=== PATIENT | female | born 1990 | race Caucasian/White ===

== ENCOUNTER 2017-01-18 22:38 | Emergency (ER) | payer OTHER ==
[~2017-01-18] VITALS: Ht 157.5 cm; Wt 57.0 kg
[~2017-01-18 22:38] MED LIST: CIPR500T4 PO; METR500T PO
[2017-01-18 23:00] VITALS: Ht 157.5 cm; Wt 57.0 kg
[2017-01-19] MEDS ORDERED: IBUP-1542 PO (00:40)
--- NOTE | 2017-01-19 00:42 | ERD ---
ER Documentation Chief Complaint Chief Complaint Rt wrist pain x1day s/p fall. No KO. +CMS HPI 26 year female right wrist pains for 1 day. She fell. No loss conscious. Complains of pain in her right wrist. No nausea no vomiting no chills. No other current complaints. Pain is mild to moderate intensity. No numbness or tingling. ROS All systems reviewed and are negative except as per history of present illness. Medications Home Meds Active Scripts Ibuprofen* (Motrin*) 600 Mg Tab, 600 MG PO Q6, #30 TAB Prov:GERHARD EVANS 01/19/17 Metronidazole* (Flagyl*) 500 Mg Tablet, 500 MG PO TID for 7 Days, TAB Prov:DANI ACEVEDO PA-C 03/13/16 Ciprofloxacin Hcl* (Ciprofloxacin Hcl*) 500 Mg Tablet, 500 MG PO BID for 7 Days , TAB Prov:DANI ACEVEDO PA-C 03/13/16 Allergies Allergies: Coded Allergies: No Known Allergy (Unverified , 01/18/17) PMhx/Soc History of Surgery: No Anesthesia Reaction: No Hx Neurological Disorder: No Hx Respiratory Disorders: No Hx Cardiac Disorders: No Hx Psychiatric Problems: No Hx Miscellaneous Medical Probl: No Hx Alcohol Use: No Hx Substance Use: No Hx Tobacco Use: No Physical Exam Vitals Vital Signs Date Time Temp Pulse Resp B/P Pulse Ox O2 Delivery O2 Flow Rate FiO2 01/18/17 23:00 97.7 66 18 104/65 100 Physical Exam Const: [] Head: Atraumatic Eyes: Normal Conjunctiva ENT: Normal External Ears, Nose and Mouth. Neck: Full range of motion..~ No meningismus. Resp: Clear to auscultation bilaterally Cardio: Regular rate and rhythm, no murmurs Abd: Soft, non tender, non distended. Normal bowel sounds Skin: No petechiae or rashes Back: No midline or flank tenderness Ext: No cyanosis, or edema Neur: Awake and alert Psych: Normal Mood and Affect Procedures/MDM X-ray Wrist 3V Interpreted by me: Scaphoid: [Normal] Bones: Scaphoid fracture Joints: [No dislocation] Foreign body: [None] Clinical decision-m[age]-year-old female with scaphoid fracture. Placed in sugar tong splint. Follow-up with orthopedics. Return for worsening symptoms. Splint Assessment: Neurovascularly intact post splint placement with good fit. Departure Diagnosis: Primary Impression: Wrist injury Encounter type: initial encounter Laterality: right Qualified Code: S69.91XA - Injury of right wrist, initial encounter Condition: Stable Patient Instructions: Treating Wrist Fractures Referrals: NATO KIM MD, DANIEL S. Jan 19, 2017 00:42
[2017-01-19] MEDS ORDERED: ONDANSETRON (ODT) 4 MG TAB ODT STA (00:53)
[2017-01-19] MEDS ORDERED: morphine 10 MG INJ IM ONE (01:00)
--- NOTE | 2017-01-19 01:05 | RADRPT ---
PROCEDURE: XR Wrist. CLINICAL INDICATION: Pain. TECHNIQUE: 4 views of the right wrist. COMPARISON: None available. FINDINGS: There is a minimally displaced fracture through the scaphoid waist. The joint spaces are preserved. There is no significant soft tissue swelling. IMPRESSION: 1. Minimally displaced scaphoid waist fracture. RPTAT: HTAR .Sebastien Crowe MD, MD Date Time Electronically viewed and signed by .Sebastien Crowe MD, on 01/19/2017 01:05 .R/
== END 2017-01-19 01:29 | disposition home or self-care (01) ==
LOC: E/R 22:38
DX: S69.91XA Unspecified injury of right wrist, hand and finger(s), initial encounter (principal); W18.39XA Other fall on same level, initial encounter; Y92.9 Unspecified place or not applicable
CPT/HCPCS: 73110; 96372; J2270; Z7502; Z7610